=== PATIENT | female | born 1930 | race Caucasian/White ===

== ENCOUNTER → 2017-02-04 | Outpatient (CLI) | payer MEDICARE ==
[~2017-02-04] MED LIST: ASPIRIN81 MG PO; BROVANA15 MCG/2 M INH; CLARITIN10 MG PO; COLACE 100MG C100 MG PO; COUMADIN7.5 MG PO; COZAAR25 MG PO; ICAPS AREDS FO1 EACH PO; LOPRESSOR50 MG PO; MELADOX3 MG PO; NYSTATIN1 EAC1 TOP; PULMICORT0.5 MG/2 M INH; SINGULAIR10 MG PO; SUPER B COMPLE150 MG PO; SYMBICORT 16010.2 GM INH; TRAMADOL HCL E200 MG PO; VITAMIN D31000 UNI2 PO; WOMEN'S MULTI200 MCG PO
[2017-02-04 11:32] LABS: HEMOGLOBIN 14.1 gm/dl (12.3-15.3); RED BLOOD COUNT 4.7 M/UL (4.00-5.10); WHITE BLOOD COUNT 7.4 K/UL (4.5-11.0)
[2017-02-04 11:50] LABS: BUN/CREATININE RATIO 23 (0-10)
== END ==
LOC: OPSV2 10:47
PROVIDERS: Orthopaedic Surgery
DX: Z01.810 Encounter for preprocedural cardiovascular examination (principal); Z01.812 Encounter for preprocedural laboratory examination; Z01.818 Encounter for other preprocedural examination; S22.088A Other fracture of T11-T12 vertebra, initial encounter for closed fracture
CPT/HCPCS: 36415; 71020; 80048; 85027; 85610; 85730; 93005

== ENCOUNTER 2017-02-07 07:19 | Day surgery (SDC) | payer MEDICARE, MEDICAID ==
[~2017-02-07] VITALS: Ht 162.6 cm; Wt 94.8 kg
[2017-02-07] MEDS ORDERED: LOPRESSOR50 MG PO (08:09)
[2017-02-07] MEDS ORDERED: COZAAR25 MG PO (08:13)
[2017-02-07] MEDS ORDERED: TRAMADOL HCL E200 MG PO (08:14)
[2017-02-07] MEDS ORDERED: CLARITIN10 MG PO (08:14)
[2017-02-07] MEDS ORDERED: SINGULAIR10 MG PO (08:14)
[2017-02-07] MEDS ORDERED: ICAPS AREDS FO1 EACH PO (08:15)
[2017-02-07] MEDS ORDERED: VITAMIN D31000 UNI2 PO (08:15)
[2017-02-07] MEDS ORDERED: ASPIRIN81 MG PO (08:15)
[2017-02-07] MEDS ORDERED: WOMEN'S MULTI200 MCG PO (08:16)
[2017-02-07] MEDS ORDERED: SUPER B COMPLE150 MG PO (08:16)
[2017-02-07] MEDS ORDERED: COUMADIN7.5 MG PO (08:17)
[2017-02-07] MEDS ORDERED: MELADOX3 MG PO (08:17)
[2017-02-07] MEDS ORDERED: SYMBICORT 16010.2 GM INH (08:18)
[2017-02-07] MEDS ORDERED: PULMICORT0.5 MG/2 M INH (08:18)
[2017-02-07] MEDS ORDERED: COLACE 100MG C100 MG PO (08:18)
[2017-02-07] MEDS ORDERED: BROVANA15 MCG/2 M INH (08:19)
[2017-02-08 06:03] LABS: HEMOGLOBIN 13.3 gm/dl (12.3-15.3); RED BLOOD COUNT 4.44 M/UL (4.00-5.10); WHITE BLOOD COUNT 12.8 K/UL (4.5-11.0)
[2017-02-08 06:30] LABS: BUN/CREATININE RATIO 16 (0-10)
[2017-02-08] MEDS ORDERED: NYSTATIN1 EAC1 TOP (16:19)
== END 2017-02-08 16:31 | disposition home or self-care (01) ==
LOC: OR 07:19 → M/S 17:01 → OR 02-08 16:31
PROVIDERS: Orthopaedic Surgery
PROC: 0PU43JZ Supplement Thoracic Vertebra with Synthetic Substitute, Percutaneous Approach (ICD-10-PCS; 2017-02-07)
PROC: 0PS43ZZ Reposition Thoracic Vertebra, Percutaneous Approach (ICD-10-PCS; principal; 2017-02-07 11:30)
DX: M80.08XA Age-related osteoporosis with current pathological fracture, vertebra(e), initial encounter for fracture (principal); I48.91 Unspecified atrial fibrillation; I11.0 Hypertensive heart disease with heart failure; I50.9 Heart failure, unspecified; J44.9 Chronic obstructive pulmonary disease, unspecified; G89.29 Other chronic pain; M54.9 Dorsalgia, unspecified; M19.90 Unspecified osteoarthritis, unspecified site; Z87.01 Personal history of pneumonia (recurrent); Z79.01 Long term (current) use of anticoagulants; Z79.82 Long term (current) use of aspirin; Z79.899 Other long term (current) drug therapy
CPT/HCPCS: 36415; 80048; 85025; 85610; 97116; 97535; C1713; J0690; J2405; J2710; J7120; Q9962